=== PATIENT | male | born 1980 | race Caucasian/White ===

== ENCOUNTER 2016-05-13 08:48 | Emergency (ER) | payer OTHER ==
--- NOTE | 2016-05-13 09:20 | ED ---
Influenza-Like Illness - HPI Summary HPI Summary: Pt here w/ flu-like sx x 2 days. Started yesterday as ST then today woke and felt like he was hit by a truck. [place]ALL[place], ST, cough w/ SOB and Rt sided chest pressure, fever, nausea. Denies sinus pain/pressure, ab pain, rash, vomiting, diarrhea. Decreased appetite. Drinking lots of fluids but feels like he's urinating frequently as well. Sick contacts - family with flu-like sx 2 weeks ago. Pt received influenza vaccine. Took tylenol last night which broke 103F but back to 102F again this morning. 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 - - Allergy/Home Medications Allergies/Adverse Reactions: Allergies Allergy/AdvReac Type Severity Reaction Status Date / Time No Known Allergies Allergy Verified 05/13/16 08:50 PMH/Surg Hx/FS Hx/Imm Hx Previously Healthy: Yes Endocrine/Hematology History: Denies: Autoimmune Disease Cardiovascular History: Denies: Hx Pacemaker/ICD Respiratory History: Denies: Hx Asthma, Hx Chronic Bronchitis, Hx Chronic Obstructive Pulmonary Disease (COPD), Hx Pneumonia, Hx Pulmonary Embolism Sensory History: Denies: Hx Hearing Aid Psychiatric History: Denies: Hx Panic Disorder - Surgical History Surgery Procedure, Year, and Place: NONE Infectious Disease History: No Infectious Disease History: Denies: History Other Infectious Disease, Traveled Outside the [place] in Last 30 Days - Family History Known Family History: Positive: Other - COPD, EMPHYSEMA - Social History Occupation: Employed Full-time Lives: With Family Alcohol Use: Daily - 1-2 A NIGHT Hx Substance Use: No Substance Use Type: Reports: None Smoking Status (MU): Former Smoker Review of Systems Constitutional: Other - see HPI Eyes: Negative ENT: Other - see HPI Cardiovascular: Other - see HPI Negative: Palpitations Respiratory: Other - see HPI Gastrointestinal: Other - see HPI Genitourinary: Other - see HPI Musculoskeletal: Other - see HPI Negative: Rash Neurological: Other - see HPI Psychological: Normal All Other Systems Reviewed And Are Negative: Yes Physical Exam Triage Information Reviewed: Yes Vital Signs On Initial Exam: Initial Vitals Temp Pulse Resp BP Pulse Ox 102.5 F 114 16 130/94 98 05/13/16 08:50 05/13/16 08:50 05/13/16 08:50 05/13/16 08:50 05/13/16 08:50 Vital Signs Reviewed: Yes Appearance: Positive: No Pain Distress, Ill-Appearing, Obese Skin: Positive: Warm, Dry - no rash Head/Face: Positive: Normal Head/Face Inspection - sinuses NTTP Eyes: Positive: Normal, EOMI, HARJIT, Conjunctiva Clear. Negative: Conjunctiva Inflammed, Discharge ENT: Positive: Normal ENT inspection, Hearing grossly normal, Pharyngeal erythema, TMs normal. Negative: Nasal congestion, Nasal drainage, Tonsillar swelling, Tonsillar exudate Neck: Positive: Supple, Nontender, No Lymphadenopathy Respiratory/Lung Sounds: Positive: Clear to Auscultation, Breath Sounds Present. Negative: Rales, Rhonchi, Stridor, Wheezes Cardiovascular: Positive: Normal, RRR, S1, S2. Negative: Murmur, Rub Abdomen Description: Positive: Nontender, No Organomegaly, Soft Bowel Sounds: Positive: Present Musculoskeletal: Positive: Normal, Strength/ROM Intact Neurological: Positive: Normal, Sensory/Motor Intact, Alert, Oriented to Person Place, Time, CN Intact II-III Psychiatric: Positive: Normal - tired, mildy agitated Diagnostics - Vital Signs Vital Signs Temp Pulse Resp BP Pulse Ox 05/13/16 08:50 102.5 F 114 16 130/94 98 - Laboratory Result Diagrams: 05/13/16 09:50 05/13/16 09:50 Lab Statement: Any lab studies that have been ordered have been reviewed, and results considered in the medical decision making process. Re-Evaluation - Re-Evaluation First Eval Change: Improved - chest pain improved s/p toradol and IV fluids - still has [place] Second Eval Change: Improved - MCALLISTER improved s/p acetaminophen Third Eval Change: Improved - throat pain improved s/p ibuprofen Flu Symptom Course/Dx - Course Course Of Treatment: Pt presents w/ ST and generalized pain,weakness. Sepsis was suspected upon initial interview so 30cc/mL was administered. Labs reveal elevated WBC's however lactic acid and CRP are WNL. Dx'd w/ strep pharyngitis and provided with Pen G 1.2million units IM as well as clindamycin 600mg loading dose. Pen G is a single dose recommendation and remains in the tissue for 21-28 days so no further anbx will be rx'd at this time. Pt to f/u with PCP in 2 days. Reviewed danger s/sx of when to return to ED. Pt and voice understanding. - Diagnoses Provider Diagnoses: Strep pharyngitis - Physician Notifications Discussed Care Of Patient With: Dr. Leyva. Dr. Garber Discharge - Discharge Plan Condition: Improved Disposition: HOME Patient Education Materials: Pharyngitis (ED) Forms: *Work Release Referrals: Trenton Bo MD [Primary Care Provider] - Additional Instructions: You appear to have strep pharyngitis and dehydration. Implement conservative care (ie. salt water gargles, hot tea with honey, lozenges, etc) and follow-up with PCP in 2 days - call tomorrow morning to schedule appointment. Alternate ibuprofen (600mg) with acetaminophen (650mg) to reduce fever and help with pain. *If you develop intractable vomiting, worsening of headache, neck pain, weakness , difficulty breathing or swallowing and/or fever of 103F despite taking medications, return to ED
[2016-05-13] MEDS ORDERED: Ketorolac INJ* 30 MG/ML 1 ML VIAL IV PUSH ONE (09:28)
--- NOTE | 2016-05-13 09:49 | RAD ---
INDICATION: Cough, shortness of breath, fever. Body aches. COMPARISON: June 21, 2011 TECHNIQUE: Dual energy PA and routine lateral views of the chest were obtained. REPORT: Clear lungs and pleural spaces. Negative for pneumothorax. The heart, pulmonary vasculature, and mediastinal contours are unremarkable. Unremarkable osseous structures and soft tissue contours. IMPRESSION: No evidence for pneumonia. No evidence for acute intrathoracic disease.
[2016-05-13] MEDS: NS 0.9% 1000 ML* 3,000 ML IV ONE ×2 (10:02→14:16)
[2016-05-13 10:13] LABS: Hematocrit 46 % (42-52); Hemoglobin 15.9 g/dl (14.0-18.0); Mean Corpuscular HGB Conc 35 g/dl (31-36); Mean Corpuscular Hemoglobin 32 pg (27-31); Mean Corpuscular Volume 91 fL (80-94); Mean Platelet Volume 10 um3 (7.4-10.4); Red Blood Count 5.05 10^6/ul (4.0-5.4); Red Cell Distribution Width 12 % (10.5-15); White Blood Count 19.3 10^3/ul (3.5-10.8)
[2016-05-13 10:18] LABS: Add Diff/Slide Review? Slide Review Added; Comments Flag Yes
[2016-05-13 10:30] LABS: Albumin 4.9 g/dL (3.2-5.2); BUN/Creatinine Ratio 13.8 (8-20); EGFR African American 97.9 (>60); EGFR Non-African American 76.1 (>60); Globulin 3.5 g/dL (2-4); Potassium 3.6 mmol/L (3.5-5.0); Total Bilirubin 1.4 mg/dL (0.2-1.0); Total Protein 8.4 g/dL (6.4-8.9)
[2016-05-13 10:32] LABS: Troponin I 0.01 ng/mL (<0.04)
[2016-05-13] MEDS ORDERED: Penicillin G Benzathine 1.2MU* 1,200,000 UNITS/2 ML SYR IM ONE (10:50)
[2016-05-13 11:37] VITALS: BP 116/68
[2016-05-13] MEDS ORDERED: Acetaminophen TAB* 325 MG PO ONE (12:29)
[2016-05-13 14:29] LABS: Urine Bilirubin Negative (Negative); Urine Glucose Negative (Negative); Urine Nitrite Negative (Negative)
[2016-05-13] MEDS ORDERED: Clindamycin 600 MG IVPREMIX(* 600 MG/50 ML SDV IV ONE (14:45)
[2016-05-13] MEDS ORDERED: Ibuprofen TAB* 600 MG PO ONE (15:11)
== END 2016-05-13 17:01 | disposition home or self-care (01) ==
LOC: ED 08:48
DX: J02.0 Streptococcal pharyngitis (principal); J43.9 Emphysema, unspecified; Z87.891 Personal history of nicotine dependence
CPT/HCPCS: 36415; 71020; 80053; 81003; 83605; 84484; 85025; 85610; 85730; 87040; 87502; 87651; 93005; 96360; 96372; 96374; 96375; 99283; A9270-GY; J0558; J1885